=== PATIENT | female | born 1960 | race Hispanic/Latino ===

== ENCOUNTER 2017-04-28 07:58 | Outpatient (CLI) | payer BC ==
--- NOTE | 2017-04-28 09:03 | XRay Report ---
RIGHT ELBOW THREE VIEWS: 04/28/17 07:58:00 CLINICAL: Elbow pain. FINDINGS: Normal bones, joints and soft tissues. No fracture or dislocation. A nondisplaced anterior fat pad and no joint effusion. IMPRESSION: Normal.
--- NOTE | 2017-04-28 09:05 | XRay Report ---
XRAY LEFT HAND THREE VIEWS: 04/28/17 07:58:00 CLINICAL: Pain. FINDINGS: No fracture or dislocation. Mild osteoarthritis at the basal joint of the thumb and the first MCP joint. The rest of the joints are normal. Mild nonspecific soft tissue swelling of the index, middle and ring fingers. No foreign body or soft tissue air. IMPRESSION: Mild osteoarthritis and mild nonspecific soft tissue swelling.
== END 2017-04-28 07:59 | disposition home or self-care (01) ==
LOC: SPVIMAG 07:58
PROVIDERS: ATTEND Orthopaedic Surgery Sports Medicine
DX: M18.9 Osteoarthritis of first carpometacarpal joint, unspecified (principal); M25.521 Pain in right elbow